=== PATIENT | female | born 1965 | race Caucasian/White ===

== ENCOUNTER 2017-11-02 16:38 | Emergency (ER) | payer BC ==
[~2017-11-02] VITALS: Ht 147.3 cm; Wt 49.9 kg
[2017-11-02 16:40] VITALS: BP 115/67
[2017-11-02 17:01] LABS: URINE BILIRUBIN NEGATIVE (Negative); URINE BLOOD 3+ (Negative); URINE CLARITY HAZY; URINE COLOR REDDISH; URINE GLUCOSE-RANDOM* NEGATIVE (Negative); URINE KETONES NEGATIVE (Negative); URINE LEUKOCYTES 1+ (Negative); URINE NITRITE NEGATIVE (Negative); URINE PROTEIN (DIPSTICK) 2+ (Negative); URINE SPECIFIC GRAVITY <= 1.005 (1.005-1.035); URINE UROBILINOGEN 0.2 E.U./dl (0.2-1.0)
[2017-11-02 17:05] LABS: SQUAMOUS 0-3 Few /LPF (0-3)
[2017-11-02 17:06] LABS: BACTERIA 1-9 Few /HPF (None Seen); CASTS None Seen /LPF (None Seen); CRYSTALS None Seen /LPF (None Seen); URINE WBC 6-15 Few /HPF (0-5)
[2017-11-02] MEDS ORDERED: ANUSOL-HC25 MG RECTAL (17:09)
[2017-11-02] MEDS ORDERED: KEFLEX500 M1 PO (17:09)
[2017-11-02] MEDS ORDERED: FENOFIBRATE160 MG PO (17:46)
== END 2017-11-02 18:20 | disposition home or self-care (01) ==
LOC: ER 16:38
PROVIDERS: Emergency Medicine
DX: N39.0 Urinary tract infection, site not specified (principal); K62.89 Other specified diseases of anus and rectum